=== PATIENT | male | born 1955 | race Caucasian/White ===

== ENCOUNTER 2019-05-09 12:02 | Emergency (ER) | payer BC ==
[~2019-05-09] VITALS: Ht 170.2 cm; Wt 80.0 kg
[~2019-05-09 12:02] MED LIST: ASPIRIN 8181 MG PO; COREG6.25 MG PO; FISH OIL1200 M1 PO; FLEXERIL PO; FOLIC ACID800 MCG PO; KENALOG-4040 MG/ML IA; NIACIN SR500 M1 PO; SIMVASTATIN40 MG PO; TYLENOL ARTH650 M1 PO
[2019-05-09] MEDS ORDERED: TAM75CAP PO (13:33)
[2019-05-09] MEDS ORDERED: CEPHALEXIN500 MG PO (13:33)
[2019-05-09 13:40] VITALS: BP 146/102
== END 2019-05-09 13:45 | disposition home or self-care (01) | DRG 153 ==
LOC: ED 12:02
DX: J11.1 Influenza due to unidentified influenza virus with other respiratory manifestations (principal)